=== PATIENT | male | born 1970 | race Caucasian/White ===

== ENCOUNTER 2019-12-07 01:09 | Observation (INO) ==
[2019-12-07] MEDS ORDERED: ONDANSETRON 4 MG/2 ML VIAL IV PRN (03:44)
[2019-12-07] MEDS ORDERED: ACETAMINOPHEN 325 MG TABLET PO PRN (03:44)
[2019-12-07] MEDS ORDERED: DEXTROSE 50% 25 GM/50 ML VIAL IV PRN (03:44)
[2019-12-07] MEDS ORDERED: ALUMINUM/MAGNES/SIMETH MAX STR 30 ML UDCUP PO PRN (03:44)
[2019-12-07] MEDS ORDERED: GLUCAGON 1 MG VIAL IM PRN (03:44)
[2019-12-07] MEDS ORDERED: guaiFENesin/DM ER 600-30 MG TABLET PO PRN (03:44)
[2019-12-07] MEDS ORDERED: MORPHINE 4 MG/1 ML VIAL IV PRN (03:44)
[2019-12-07] MEDS ORDERED: NICOTINE 21 MG/24 HR PATCH TRANSDERM PRN (03:44)
[2019-12-07] MEDS ORDERED: diphenhydrAMINE CAP 25 MG CAPSULE PO PRN (03:44)
[2019-12-07 04:14] LABS: Basophils # 0.1 10*3/uL (0.0-0.2); Basophils % 0.7 % (0.0-0.8); Eosinophils # 0.5 10*3/uL (0.0-0.87); Eosinophils % 4.5 % (0.00-10.9); Hematocrit 43.8 VOL% (42.0-52.0); Immature Granulocytes % 0.4 %; Immature Granulocytes Absolute 0.04 #; Lymphocytes % 27.6 % (21.2-54.2); Mean Corpuscular HGB Conc 34.2 GM/DL (32-36); Mean Corpuscular Volume 91.6 FL (87-102); Monocytes % 8.7 % (1.7-12.7); Neutrophils % 58.1 % (38.7-73.9); Platelet Count 195 T/CUMM (130-400); Red Blood Count 4.78 MC/CUMM (3.8-5.5); Red Cell Distribution Width 12.3 % (9.3-17.3); White Blood Count 10.8 T/CUMM (4-12)
[2019-12-07 04:46] LABS: Alanine Aminotransferase 33 U/L (16-61); Albumin 3.6 G/DL (3.4-5.0); Alkaline Phosphatase 80 U/L (45-117); Aspartate Amino Transferase 19 U/L (0-37); Bilirubin,Total < 0.39 MG/DL (0.2-1.0); Blood Urea Nitrogen 11 MG/DL (7-18); Calcium 9.5 MG/DL (8.5-10.1); Estimated Glom Filtration Rate 125 ML/MIN; Glucose 104 MG/DL (74-106); HDL Cholesterol 34 MG/DL (40-60); Osmolality,Calculated 279.3 MOS/KG (273-304); Risk Ratio 4.62; Total Protein 7.2 G/DL (6.4-8.3); Triglycerides 219 MG/DL (2-150); VLDL CHOLESTEROL 43.8 MG/DL
[2019-12-07] MEDS ORDERED: NITROGLYCERIN SL 0.4 MG TABLET SL PRN (06:50)
[2019-12-07] MEDS ORDERED: ENOXAPARIN 100 MG/ML SYRINGE SUBCUT SCH (07:00)
[2019-12-07 08:32] LABS: CKMB % 3.4 %
[2019-12-07 08:37] LABS: Troponin I 1.82 NG/ML (0.00-0.045)
[2019-12-07] MEDS: INSULIN REGULAR 100 UNIT/ML SUBCUT SCH ×4 (08:45→21:19)
[2019-12-07] MEDS ORDERED: CLOPIDOGREL 75 MG TABLET PO SCH (09:00)
[2019-12-07] MEDS ORDERED: ASPIRIN 325 MG TABLET PO SCH (09:00)
[2019-12-07] MEDS ORDERED: HEPARIN/NACL 0.9% 2 UNITS/ML 1,000 ML IV ONE (09:46)
[2019-12-07] MEDS ORDERED: DIAZEPAM 5 MG TABLET PO ONE (09:46)
[2019-12-07] MEDS ORDERED: diphenhydrAMINE CAP 50 MG CAPSULE PO ONE (09:46)
[2019-12-07] MEDS ORDERED: LIDOCAINE 1%/EPI INJ 20 ML VIAL ONE (09:46)
[2019-12-07] MEDS ORDERED: MIDAZOLAM 2 MG/2 ML VIAL ONE (09:51)
[2019-12-07] MEDS ORDERED: fentaNYL 100 MCG/2 ML VIAL ONE (09:52)
[2019-12-07] MEDS ORDERED: ENOXAPARIN 60 MG/0.6 ML SYRINGE ONE (10:24)
[2019-12-07] MEDS ORDERED: TIROFIBAN 5,000 MCG/100 ML PREMIX IV ONE (10:25)
[2019-12-07] MEDS ORDERED: NITROGLYCERIN DRIP 50 MG/250 ML BOTTLE IV ONE (10:41)
[2019-12-07] MEDS ORDERED: TICAGRELOR 90 MG TABLET ONE (10:49)
[2019-12-07] MEDS ORDERED: TIROFIBAN 5,000 MCG/100 ML PREMIX IV SCH (11:00)
[2019-12-07] MEDS ORDERED: ROSUVASTATIN 20 MG TABLET PO SCH (21:00)
[2019-12-07] MEDS: TICAGRELOR 90 MG TABLET PO SCH (21:11)
[2019-12-08 05:51] LABS: Blood Urea Nitrogen 11 MG/DL (7-18); Calcium 8.5 MG/DL (8.5-10.1); Estimated Glom Filtration Rate 125 ML/MIN; Glucose 99 MG/DL (74-106); Osmolality,Calculated 275.5 MOS/KG (273-304)
[2019-12-08 08:09] VITALS: BP 111/72
[2019-12-08] MEDS ORDERED: ASPIRIN EC 81 MG TABLET PO SCH (09:00)
[2019-12-08] MEDS: INSULIN REGULAR 100 UNIT/ML SUBCUT SCH (09:01)
[2019-12-08] MEDS: TICAGRELOR 90 MG TABLET PO SCH (10:00)
[2019-12-09] MEDS ORDERED: lisinopriL 2.5 MG TABLET PO SCH (09:00)
== END 2019-12-08 11:10 | disposition home or self-care (01) ==
LOC: N.TELEN → SUATTDRO 02:52
PROVIDERS: ADMIT Internal Medicine; ATTEND Emergency Medicine
PROC: CLCCHCL (ICD-10-PCS; 2019-12-07 10:45)